=== PATIENT | female | born 1975 | race Caucasian/White ===

== ENCOUNTER 2016-07-12 14:53 | Emergency (ER) | payer SELFPAY ==
[~2016-07-12] VITALS: Ht 172.7 cm; Wt 84.0 kg
[~2016-07-12 14:53] MED LIST: ALBU6.7H INH; MEDR4PAK3 PO; ZITH250T PO
[2016-07-12 14:57] VITALS: BP 137/95; PULSE 102; RESP 16; TEMP 98.2; O2SAT 96
[2016-07-12 15:42] LABS: BLOOD, URINE LARGE (NEG); GLUCOSE,URINE NEG (NEG); KETONE, URINE NEG (NEG); NITRITE,URINE NEG (NEG)
[2016-07-12 15:47] LABS: METHOD OF COLLECTION VOIDED; URINE COLOR STRAW (YELLW/STRAW)
[2016-07-12 15:48] LABS: WBC, URINE INNUM /hpf (0-5)
[2016-07-12 15:49] LABS: BACTERIA, URINE FEW /hpf; COMMENT (UR) CULTURE INDICATED; CULTURE IF INDICATED CULTURE INDICATED; SQUAMOUS EPITHELIAL CELL URINE 0-3 /hpf (0-5)
[2016-07-12] MEDS ORDERED: SODIUM CHLOR 0.9% 1000 ML INJ 1,000 ML IV SCH (16:24)
[2016-07-12] MEDS ORDERED: cefTRIAXone INJ 1,000 MG in SODIUM CHLORIDE 0.9% INJ 100 ML IV ONE (16:30)
[2016-07-12] MEDS ORDERED: ONDANSETRON HCL 4 MG/2 ML VIAL IVP ONE (16:30)
--- NOTE | 2016-07-12 16:32 | PD ---
HPI Chief Complaint: Complaint Time Seen by Provider: 16:27 Travel History International Travel<30 days: No Contact w/Intl Traveler<30days: No Traveled to known affect area: No History of Present Illness HPI Patient is a 40-year-old female with chief complaint of dysuria. She states she has had foul-smelling urine off and on for several days but this morning has had worsening along with hematuria, dysuria and increased urgency and frequency of urine. She states she felt warm as has some chills, one episode of nausea with emesis. She states she's had some minor pain in the right lower back and around the suprapubic and right lower quadrant region. She denies vaginal bleeding or discharge. She has a history of tubal ligation. She is sexually active with 1 male partner and does not use protection, she does not believe she has been exposed to STDs. She denies history of renal calculi. She endorses history of tobacco and marijuana use, denies alcohol and other illicit drugs. PFSH Past Medical History Anxiety: Yes Diminished Hearing: No Influenza Vaccination: No ?: Not : 5 Para: 4 Miscarriage: 1 Tubal Ligation: Yes (2002) Social History Alcohol Use: Yes ([facility]) Tobacco Use: Yes (QUIT DECEMBER 2013/E CIG) Substance Use: Yes (MARIJUANA 2X'S PER MONTH) Allergies-Medications (Allergen,Severity, Reaction): Coded Allergies: No Known Allergies (Verified , 07/12/16) Reported Meds & Prescriptions Reported Meds & Active Scripts Active Zofran Odt (Ondansetron Odt) 4 Mg Tab 4 Mg SL Q8HR PRN Cipro (Ciprofloxacin HCl) 500 Mg Tab 500 Mg PO BID Review of Systems Except as stated in HPI: all other systems reviewed are Neg Physical Exam Narrative GENERAL: Well-developed and well-nourished adult female in no acute distress. SKIN: Warm and dry. Slightly reduced turgor without tenting. HEAD: Normocephalic and atraumatic. EYES: PERRL bilaterally, 5mm. EOMI bilaterally. No injection or icterus present. No proptosis. Lids without edema or erythema. ENT: Buccal mucosa pink and moist. Oropharynx free of erythema, tonsillar hypertrophy, masses, swelling, asymmetry and exudates. Uvula midline and airway patent. NECK: Supple, no meningeal signs. Trachea midline, no JVD. No cervical or facial lymphadenopathy. CARDIOVASCULAR: Regular rate and rhythm without murmurs, rubs, clicks or gallops. Radial and posterior tibial pulses 2+ bilaterally. No pedal edema. RESPIRATORY: Clear to auscultation bilaterally with symmetrical rise and fall, no distress or use of accessory muscles. GASTROINTESTINAL: Right-sided CVA tenderness present, no left-sided CVA tenderness. Patient has some suprapubic tenderness without rebound or guarding. No discoloration or distention. Normal bowel sounds all 4 quadrants. No masses or organomegaly present. MUSCULOSKELETAL: No gait disturbances. Patient freely moving all four extremities spontaneously. Extremities without clubbing, cyanosis, or edema. No obvious deformities. NEUROLOGIC: CN II-XII grossly intact. Awake and alert. Motor grossly within normal limits. Normal speech. PSYCHIATRIC: Appropriate mood and affect; insight and judgment normal. Data Data Last Documented VS Vital Signs Date Time Temp Pulse Resp B/P Pulse Ox O2 Delivery O2 Flow Rate FiO2 07/12/16 17:31 82 18 113/70 100 Room Air 07/12/16 14:57 98.2 Orders Urinalysis - C+S If Indicated (07/12/16 15:01) Ed Urine Pregnancytest Poc (07/12/16 15:01) Urine Culture (07/12/16 15:30) Complete Blood Count With Diff (07/12/16 16:24) Comprehensive Metabolic Panel (07/12/16 16:24) Lipase (07/12/16 16:24) Prothrombin Time / Inr (Pt) (07/12/16 16:24) Act Partial Throm Time (Ptt) (07/12/16 16:24) Ct Abd/Pel W/O Iv Contrast (07/12/16 16:24) Iv Access Insert/Monitor (07/12/16 16:24) Ecg Monitoring (07/12/16 16:24) Ondansetron Inj (Zofran Inj) (07/12/16 16:30) Sodium Chlor 0.9% 1000 Ml Inj (Ns 1000 M (07/12/16 16:24) Ceftriaxone Inj (Rocephin Inj) (07/12/16 16:30) Labs Laboratory Tests Test 07/12/16 07/12/16 15:30 16:35 Urine Collection Type VOIDED Urine Color STRAW Urine Turbidity CLOUDY Urine pH 6.0 Urine Specific [place] 1.015 Urine Protein TRACE mg/dL Urine Glucose (UA) NEG mg/dL Urine Ketones NEG mg/dL Urine Occult Blood LARGE Urine Nitrite NEG Urine Bilirubin NEG Urine Leukocyte Esterase MOD Urine RBC 4-9 /hpf Urine WBC INNUM /hpf Urine WBC Clumps MOD Urine Squamous Epithelial 0-3 /hpf Cells Urine Bacteria FEW /hpf Microscopic Urinalysis Comment CULTURE INDICATED White Blood Count 14.3 TH/MM3 Red Blood Count 4.54 MIL/MM3 Hemoglobin 13.4 GM/DL Hematocrit 39.3 % Mean Corpuscular Volume 86.5 FL Mean Corpuscular Hemoglobin 29.5 PG Mean Corpuscular Hemoglobin 34.1 % Concent Red Cell Distribution Width 13.9 % Platelet Count 292 TH/MM3 Mean Platelet Volume 8.4 FL Neutrophils (%) (Auto) 67.7 % Lymphocytes (%) (Auto) 18.4 % Monocytes (%) (Auto) 8.8 % Eosinophils (%) (Auto) 1.6 % Basophils (%) (Auto) 3.5 % Neutrophils # (Auto) 9.7 TH/MM3 Lymphocytes # (Auto) 2.6 TH/MM3 Monocytes # (Auto) 1.3 TH/MM3 Eosinophils # (Auto) 0.2 TH/MM3 Basophils # (Auto) 0.5 TH/MM3 CBC Comment DIFF FINAL Differential Comment Prothrombin Time 10.7 SEC Prothromb Time International 1.0 RATIO Ratio Activated Partial 26.6 SEC Thromboplast Time Sodium Level 142 MEQ/L Potassium Level 3.8 MEQ/L Chloride Level 105 MEQ/L Carbon Dioxide Level 28.7 MEQ/L Anion Gap 8 MEQ/L Blood Urea Nitrogen 7 MG/DL Creatinine 0.87 MG/DL Estimat Glomerular Filtration 72 ML/MIN Rate Random Glucose 86 MG/DL Calcium Level 9.1 MG/DL Total Bilirubin 0.4 MG/DL Aspartate Amino Transf 17 U/L (AST/SGOT) Alanine Aminotransferase 16 U/L (ALT/SGPT) Alkaline Phosphatase 57 U/L Total Protein 8.0 GM/DL Albumin 3.8 GM/DL Lipase 121 U/L [facility] Medical Decision Making Medical Screen Exam Complete: Yes Emergency Medical Condition: Yes Interpretation(s) Laboratory Tests Test 07/12/16 07/12/16 15:30 16:35 Urine Collection Type VOIDED Urine Color STRAW (YELLW/STRAW) Urine Turbidity CLOUDY (CLEAR) Urine pH 6.0 (5.0-8.5) Urine Specific [place] 1.015 (1.002-1.035) Urine Protein TRACE mg/dL (NEG-TRACE) Urine Glucose (UA) NEG mg/dL (NEG) Urine Ketones NEG mg/dL (NEG) Urine Occult Blood LARGE (NEG) Urine Nitrite NEG (NEG) Urine Bilirubin NEG (NEG) Urine Leukocyte Esterase MOD (NEG) Urine RBC 4-9 /hpf (0-3) Urine WBC INNUM /hpf (0-5) Urine WBC Clumps MOD (NONE) Urine Squamous Epithelial 0-3 /hpf (0-5) Cells Urine Bacteria FEW /hpf (NONE) Microscopic Urinalysis Comment CULTURE INDICATED White Blood Count 14.3 TH/MM3 (4.0-11.0) Red Blood Count 4.54 MIL/MM3 (4.00-5.30) Hemoglobin 13.4 GM/DL (11.6-15.3) Hematocrit 39.3 % (35.0-46.0) Mean Corpuscular Volume 86.5 FL (80.0-100.0) Mean Corpuscular Hemoglobin 29.5 PG (27.0-34.0) Mean Corpuscular Hemoglobin 34.1 % Concent (32.0-36.0) Red Cell Distribution Width 13.9 % (11.6-17.2) Platelet Count 292 TH/MM3 (150-450) Mean Platelet Volume 8.4 FL (7.0-11.0) Neutrophils (%) (Auto) 67.7 % (16.0-70.0) Lymphocytes (%) (Auto) 18.4 % (9.0-44.0) Monocytes (%) (Auto) 8.8 % (0.0-8.0) Eosinophils (%) (Auto) 1.6 % (0.0-4.0) Basophils (%) (Auto) 3.5 % (0.0-2.0) Neutrophils # (Auto) 9.7 TH/MM3 (1.8-7.7) Lymphocytes # (Auto) 2.6 TH/MM3 (1.0-4.8) Monocytes # (Auto) 1.3 TH/MM3 (0-0.9) Eosinophils # (Auto) 0.2 TH/MM3 (0-0.4) Basophils # (Auto) 0.5 TH/MM3 (0-0.2) CBC Comment DIFF FINAL Differential Comment Prothrombin Time 10.7 SEC (9.8-11.6) Prothromb Time International 1.0 RATIO Ratio Activated Partial 26.6 SEC Thromboplast Time (24.3-30.1) Sodium Level 142 MEQ/L (136-145) Potassium Level 3.8 MEQ/L (3.5-5.1) Chloride Level 105 MEQ/L (98-107) Carbon Dioxide Level 28.7 MEQ/L (21.0-32.0) Anion Gap 8 MEQ/L (5-15) Blood Urea Nitrogen 7 MG/DL (7-18) Creatinine 0.87 MG/DL (0.50-1.00) Estimat Glomerular Filtration 72 ML/MIN (>89) Rate Random Glucose 86 MG/DL (74-106) Calcium Level 9.1 MG/DL (8.5-10.1) Total Bilirubin 0.4 MG/DL (0.2-1.0) Aspartate Amino Transf 17 U/L (15-37) (AST/SGOT) Alanine Aminotransferase 16 U/L (10-53) (ALT/SGPT) Alkaline Phosphatase 57 U/L (45-117) Total Protein 8.0 GM/DL (6.4-8.2) Albumin 3.8 GM/DL (3.4-5.0) Lipase 121 U/L (73-393) Differential Diagnosis Pyelonephritis versus cystitis versus renal calculi versus dehydration versus electrolyte disturbance Narrative Course Patient is a 40-year-old female presenting with urinary symptoms for one day as well as subjective fever, chills, nausea and vomiting. She is currently afebrile and is nontoxic appearing. Heart rate is 102 in triage, exam is in the mid 90s. She has evidence of some mild dehydration on exam. Urinalysis was done in triage shows innumerable WBCs, moderate clumps, few bacteria, 49 rbc 's and moderate leukocyte esterase. Patient was given ceftriaxone 1 g IV, Zofran and 1 L normal saline bolus. Ordered labs including lipase and hCG as well as abdomen and pelvis CT as she is having right back and flank pain. Repeat heart rate 72 after 750 mL stone the bolus have been administered. Patient reports nausea resolved and she feels improved. CBC shows WBC of 14.3 with an ANC of 9.7. No bands. INR 1.0. Creatinine 0.87. Labs are otherwise unremarkable. CT shows small 3 mm left-sided nonobstructive calculi, uncomplicated colonic diverticulosis without diverticulitis. Patient has been able to orient reports feeling much improved. Even when she arrived she is on her laptop working and does not appear to be in any acute distress. I discussed with the patient and and the patient's wish is to be treated as an outpatient. The physician believes this is agreeable as do I. Patient will be treated with Cipro and given Zofran for nausea. Recommend hydration and rest. Return immediately for any acute worsening of symptoms.See discharge paperwork for further instructions. The plan was discussed with the patient who acknowledged their understanding and agreement. Reinforced the follow-up with primary care is critically important. Patient instructed on emergent conditions that should prompt return to ED. Diagnosis Primary Impression: Pyelonephritis Patient Instructions: General Instructions, Urinary Tract Infection in Women ( ED) Additional Instructions: Take medication as prescribed Drink plenty of fluids to stay hydrated and flush urinary system Call for culture results and follow up with PCP in 48 hours Return to the ED for any acute worsening of symptoms including fever, nausea, vomiting or worsening pain Med/Other Pt SpecificInfo: Prescription(s) given Scripts Ondansetron Odt (Zofran Odt)4 Mg Tab4 Mg SL Q8HR PRN (Nausea/Vomiting) #12 TAB Prov:Jonna Torres MD 07/12/16 Ciprofloxacin (Cipro)500 Mg [id number] Mg PO BID #20 TAB Prov:Jonna Torres MD 07/12/16 Disposition: 01 DISCHARGE HOME Condition: Stable Galo Boykin III Jul 12, 2016 16:32
[2016-07-12 16:46] LABS: AUTOMATED NEUTROPHIL # 9.7 TH/MM3 (1.8-7.7); BASOPHIL # 0.5 TH/MM3 (0-0.2); BASOPHIL % 3.5 % (0.0-2.0); EOSINOPHIL # 0.2 TH/MM3 (0-0.4); EOSINOPHIL % 1.6 % (0.0-4.0); HEMATOCRIT 39.3 % (35.0-46.0); HEMO FLAGS DIFF FINAL; LYMPH % 18.4 % (9.0-44.0); LYMPHOCYTE # 2.6 TH/MM3 (1.0-4.8); MEAN CELL VOLUME 86.5 FL (80.0-100.0); MEAN CORPUSCULAR HEMOGLOBIN 29.5 PG (27.0-34.0); MEAN CORPUSCULAR HGB CONC 34.1 % (32.0-36.0); MONO % 8.8 % (0.0-8.0); NEUT % 67.7 % (16.0-70.0); PLATELET COUNT 292 TH/MM3 (150-450); RED BLOOD COUNT 4.54 MIL/MM3 (4.00-5.30); RED CELL DISTRIBUTION WIDTH 13.9 % (11.6-17.2); WHITE BLOOD COUNT 14.3 TH/MM3 (4.0-11.0)
[2016-07-12 16:54] LABS: CHLORIDE 105 MEQ/L (98-107); POTASSIUM 3.8 MEQ/L (3.5-5.1); SODIUM (NA) 142 MEQ/L (136-145)
[2016-07-12 16:57] LABS: ANION GAP 8 MEQ/L (5-15); BICARBONATE 28.7 MEQ/L (21.0-32.0); BLOOD UREA NITROGEN 7 MG/DL (7-18)
[2016-07-12 17:00] LABS: ALT (GPT) 16 U/L (10-53); APTT (PATIENT) 26.6 SEC (24.3-30.1); GLOMERULAR FILTRATION RATE 72 ML/MIN (>89); PROTHROMBIN TIME - PATIENT 10.7 SEC (9.8-11.6)
[2016-07-12 17:01] LABS: AST (GOT) 17 U/L (15-37)
[2016-07-12 17:02] LABS: TOTAL BILIRUBIN ADULT 0.4 MG/DL (0.2-1.0)
[2016-07-12 17:03] LABS: ALKALINE PHOSPHATASE 57 U/L (45-117)
[2016-07-12 17:31] VITALS: BP 113/70; PULSE 82; RESP 18; O2SAT 100
--- NOTE | 2016-07-12 18:14 | RADHPO ---
EXAM DATE/TIME: 07/12/2016 17:09 [place] COMPARISON: No previous studies available for comparison. INDICATIONS : Dysuria with right lower back pain. ORAL CONTRAST: No oral contrast ingested. RADIATION DOSE: 20.82 CTDIvol (mGy) MEDICAL HISTORY : None SURGICAL HISTORY : Tubal ligation. ENCOUNTER: Initial ACUITY: 1 day PAIN SCALE: 5/10 LOCATION: Right lower back. TECHNIQUE: Volumetric scanning of the abdomen and pelvis was performed. Using automated exposure control and ad justment of the mA and/or kV according to patient size, radiation dose was kept as low as reasonably achievable to obtain optimal diagnostic quality images. FINDINGS: LOWER LUNGS: The visualized lower lungs are clear. LIVER: Homogeneous density without lesion. There is no dilation of the biliary tree. No calcified gallston es. SPLEEN: Normal size without lesion. PANCREAS: Within normal limits. KIDNEYS: Normal in size and shape. There is no mass or hydronephrosis. A tiny 3 mm calcified nonobstructing l eft renal calculus is noted. ADRENAL GLANDS: Within normal limits. VASCULAR: There is no aortic aneurysm. BOWEL/MESENTERY: Few scattered uncomplicated colonic diverticula are noted. The appendix is normal. There is no bowel obstruction or ileus. ABDOMINAL WALL: Within normal limits. RETROPERITONEUM: There is no lymphadenopathy. BLADDER: No wall thickening or mass. REPRODUCTIVE: Within normal limits. INGUINAL: There is no lymphadenopathy or hernia. MUSCULOSKELETAL: Within normal limits for patient age. CONCLUSION: 1. Tiny 3 mm calcified nonobstructing left renal calculus. 2. No acute obstructive uropathy. 3. Uncomplicated colonic diverticulosis. Rambo Nuno MD on July 12, 2016 at 18:09 Board Certified Radiologist. This report was verified electronically.
[2016-07-12] MEDS ORDERED: ZOFR4TAB3 SL (18:49)
[2016-07-12] MEDS ORDERED: CIPR-9 PO (18:49)
[2016-07-12 19:17] VITALS: BP 118/60
== END 2016-07-12 19:18 | disposition home or self-care (01) ==
LOC: PHED 14:53 → PHEFT 19:18
DX: N12 Tubulo-interstitial nephritis, not specified as acute or chronic (principal); E86.0 Dehydration; Z87.891 Personal history of nicotine dependence
CPT/HCPCS: 74176; 80053; 81001; 83690; 84703; 85025; 85610; 85730; 87086; 96361; 96365; 96375; 99284; J0696; J2405; J7030